=== PATIENT | male | born 1950 | race Caucasian/White ===

== ENCOUNTER → 2018-04-27 10:41 | Outpatient (CLI) | payer MEDICARE, SELFPAY ==
[2018-04-27 11:40] LABS: Hemoglobin A1C% w Est Avg Glu 8.2 % (4.0-6.0)
[2018-04-27 11:49] LABS: Alanine Aminotransferase 47 IU/L (21-72); Albumin 4.4 g/dL (3.5-5.0); Albumin Globulin Ratio 1.5 (1.0-2.8); Alkaline Phosphatase 59 U/L (38-126); Aspartate Aminotransferase 23 IU/L (17-59); Bilirubin Total 0.7 mg/dL (0.2-1.3); Blood Urea Nitrogen 14 mg/dL (9-20); Calcium 9.2 mg/dL (8.4-10.2); Carbon Dioxide 29 mmol/L (22-32); Chloride 102 mmol/L (98-107); Cholesterol 183 mg/dL (140-199); Estimated Glomerular Filt Rate > 60.0 mL/min (>60); Globulin 2.9 g/dL (1.7-4.1); Glucose 177 mg/dL (80-110); HDL Cholesterol 46 mg/dL (40-60); HEMOLYSIS < 15 (0-50); LDL Cholesterol Calculated 98 mg/dL (<100); Sodium 142 mmol/L (137-145); Total Protein 7.3 g/dL (6.3-8.2); Triglycerides 193 mg/dL (35-150)
== END ==
PROVIDERS: Family Provider Internal Medicine; PCP Internal Medicine; Visit Provider Internal Medicine
DX: E11.9 Type 2 diabetes mellitus without complications (principal); G90.09 Other idiopathic peripheral autonomic neuropathy
CPT/HCPCS: 36415; 80053; 80061; 83036

== ENCOUNTER → 2018-09-14 12:46 | Outpatient (CLI) | payer MEDICARE, SELFPAY ==
[2018-09-14 14:20] LABS: Hemoglobin A1C% w Est Avg Glu 7.8 % (4.0-6.0)
[2018-09-14 15:43] LABS: Blood Urea Nitrogen 14 mg/dL (9-20); Carbon Dioxide 29 mmol/L (22-32); Chloride 103 mmol/L (98-107); Estimated Glomerular Filt Rate > 60.0 mL/min (>60); Glucose 142 mg/dL (80-110); HEMOLYSIS < 15 (0-50); Potassium 4.1 mmol/L (3.4-5.1); Sodium 144 mmol/L (137-145)
== END ==
PROVIDERS: PCP Internal Medicine; Visit Provider Internal Medicine
DX: E11.65 Type 2 diabetes mellitus with hyperglycemia (principal)
CPT/HCPCS: 36415; 80048; 83036

== ENCOUNTER → 2018-12-17 08:42 | Outpatient (CLI) | payer MEDICARE, SELFPAY ==
[2018-12-17 09:16] LABS: Hemoglobin A1C% w Est Avg Glu 8.1 % (4.0-6.0)
[2018-12-17 09:18] LABS: BUN Creatinine Ratio 16.3 (6-22); Blood Urea Nitrogen 13 mg/dL (9-20); Calcium 9.1 mg/dL (8.4-10.2); Carbon Dioxide 28 mmol/L (22-32); Chloride 102 mmol/L (98-107); Estimated Glomerular Filt Rate > 60.0 mL/min (>60); Glucose 149 mg/dL (80-110); HEMOLYSIS < 15 (0-50); Potassium 4.4 mmol/L (3.4-5.1); Sodium 140 mmol/L (137-145)
== END ==
PROVIDERS: PCP Internal Medicine; Visit Provider Internal Medicine
DX: E11.65 Type 2 diabetes mellitus with hyperglycemia (principal)
CPT/HCPCS: 36415; 80048; 83036

== ENCOUNTER → 2019-03-12 09:01 | Outpatient (CLI) | payer MEDICARE, SELFPAY ==
[2019-03-12 09:54] LABS: Alanine Aminotransferase 43 IU/L (21-72); Albumin 4.8 g/dL (3.5-5.0); Albumin Globulin Ratio 1.7 (1.0-2.8); Alkaline Phosphatase 51 U/L (38-126); Aspartate Aminotransferase 29 IU/L (17-59); BUN Creatinine Ratio 24.3 (6-22); Bilirubin Total 0.7 mg/dL (0.2-1.3); Blood Urea Nitrogen 17 mg/dL (9-20); Calcium 9.2 mg/dL (8.4-10.2); Carbon Dioxide 27 mmol/L (22-32); Chloride 101 mmol/L (98-107); Cholesterol 194 mg/dL (140-199); Estimated Glomerular Filt Rate > 60.0 mL/min (>60); Globulin 2.8 g/dL (1.7-4.1); Glucose 144 mg/dL (80-110); HDL Cholesterol 56 mg/dL (40-60); HEMOLYSIS < 15 (0-50); LDL Cholesterol Calculated 122 mg/dL (<100); Potassium 4.6 mmol/L (3.4-5.1); Sodium 140 mmol/L (137-145); Total Protein 7.6 g/dL (6.3-8.2); Triglycerides 79 mg/dL (35-150)
== END ==
PROVIDERS: PCP Internal Medicine; Visit Provider Internal Medicine
DX: E11.65 Type 2 diabetes mellitus with hyperglycemia (principal); E78.5 Hyperlipidemia, unspecified; G25.0 Essential tremor
CPT/HCPCS: 36415; 80053; 80061; 83036

== ENCOUNTER 2019-05-21 10:53 | Day surgery (SDC) | payer MEDICARE, SELFPAY ==
[2019-05-21 11:36] VITALS: BP 136/74; PULSE 72; RESP 15; TEMP 36.3; O2SAT 96; BMI 29.5
[2019-05-21] MEDS: SODIUM CHLORIDE 0.9% 1,000 ML 200 ML IV (11:47)
[2019-05-21] MEDS: MIDAZOLAM 5 MG/5 ML VIAL IV (11:52)
[2019-05-21] MEDS: fentaNYL 250 MCG/5 ML INJ IV (11:53)
--- NOTE | 2019-05-21 11:55 | PM.HP.1 ---
History of Present Illness Date Patient Seen: 05/21/19 Time Patient Seen: 11:56 Chief complaint: [id number] Narrative: Patient here for screening colonoscopy had 10 years ago that may have shown some polyps patient is asymptomatic no melena no hematochezia and no but abdominal pain Patient History Medical History Controlled type 2 diabetes mellitus without complication (Chronic 07/20/14) Idiopathic peripheral autonomic neuropathy, unspecified (Chronic) BPH w urinary obs/LUTS (Chronic 07/31/11) Nephrolithiasis (Chronic) History of adenomatous polyp of colon (Inactive 07/31/11) Adenoma (Chronic ~2011) BPH (benign prostatic hyperplasia) (Chronic) Diabetes mellitus (Chronic ~2013) Hyperglycemia (Chronic ~2011) Kidney stones (Chronic ~2009) Surgical History History of hernia surgery (Resolved) History of knee replacement (Resolved ~2014) Meniscal injury (Resolved ~2009) Family History Brother Diabetes mellitus Father Diabetes mellitus Social History household members: spouse Smoking Status: Former smoker Family & Social History Family History Brother Diabetes mellitus Father Diabetes mellitus Social History: household members spouse Tobacco & Substance use: Smoking Status Former smoker Meds Home Medications Medication Instructions Recorded Confirmed Type aspirin [Aspir-81] 81 mg PO DAILY #0 05/04/12 05/21/19 History albuterol sulfate [Proventil HFA] 1 puff INH SEE INSTRUCTIONS #1 inh 04/02/17 05/21/19 Rx acetaminophen 500 mg capsule 1,000 mg PO Q6H PRN 04/27/18 05/21/19 History alprazolam 0.5 mg tablet See Rx Instructions .ROUTE 08/04/18 05/21/19 Rx .COMPLEX PRN #60 tab metformin 1,000 mg tablet 1,000 mg PO BID #180 tab 12/18/18 05/21/19 Rx Accu-Chek Compact Plus Test Strips #300 each 03/02/19 05/21/19 Rx Accu-Chek Softclix Lancets #300 each 03/02/19 05/21/19 Rx primidone 50 mg tablet 100 mg PO BID #120 tab 03/12/19 05/21/19 Rx trazodone 150 mg tablet 75 mg PO HS #90 tab 03/12/19 05/21/19 Rx naproxen 375 mg PO BIDCC PRN 05/21/19 05/21/19 History Allergies Allergy/AdvReac Type Severity Reaction Status Date / Time No Known Drug Allergies Allergy Verified 05/21/19 11:24 Review of Systems Review of Systems All systems reviewed & are unremarkable except as noted in HPI and below Exam Vital Signs (past 8 hours): - 05/21/19 11:36 Temperature 97.4 F L Pulse Rate 72 Respiratory Rate 15 Blood Pressure 136/74 Pulse Oximetry 96 Oxygen Delivery Method Room Air Narrative Exam Narrative: Patient is alert and oriented with no complaints Lungs are clear Heart regular rhythm no murmur Abdomen soft and nontender Rectal will be done at time of colonoscopy Assessment & Plan Assessment & Plan narrative: Asymptomatic patient here for a screening colonoscopy. He has had prior colonoscopies and understands has no questions.
--- NOTE | 2019-05-21 12:31 | PM.OP.ENDO ---
Operative Date/Time/Diagnoses Date of procedure: 05/21/19 Time of procedure: 12:31 Pre-op diagnosis: Screening colonoscopy asymptomatic patient Post-op diagnosis: same Procedure & Clinicians Study performed: Total colonoscopy Same procedure as scheduled: Yes Indications: Screening Surgeon: Valeriy Kruger Procedure Notes SCOAP/Timeout: Was done Procedure in detail: Patient was given conscious sedation using Versed total of 5 mg and fentanyl 250 micro g throughout the procedure. He was properly identified during surgical pause. The flexible fiberoptic colonoscope inserted transanally to the cecum. Patient has rather significant sigmoid diverticulosis without diverticulitis. No polyps were seen. Procedure was well tolerated. Scope withdrawal time: 15 Sedation minutes: 30 Findings: diverticulosis Specimen(s): none sent Complications: none Impression: Sigmoid diverticulosis Recommendations: Colonscopy in 10 years Disposition: PACU
[2019-05-21 12:35] VITALS: BP 125/78; PULSE 76; RESP 12; TEMP 37.1; O2SAT 97
[2019-05-21 12:41] VITALS: BP 142/84; PULSE 77; RESP 15; O2SAT 98
[2019-05-21 12:45] VITALS: BP 136/83; PULSE 74; RESP 18; O2SAT 98
--- NOTE | 2019-05-21 12:46 | SUR.PHASEI ---
Arrived in PACU awake and talkative. HOB elevated and water given. Glucose 129. Oriented, appropriate. Resp unlabored, skin warm and dry.
--- NOTE | 2019-05-21 12:50 | SUR.PHASEI ---
Stable, prepared to transfer to [facility]. Glasses returned to patient; Very talkative.
[2019-05-21 12:55] VITALS: BP 129/73; PULSE 68; RESP 16; TEMP 36.6; O2SAT 97
--- NOTE | 2019-05-21 13:20 | SUR.PHASEII ---
1317 Tolerated water well, Stable, talkative, ready for discharge. Stable on feet.
== END 2019-05-21 13:17 | disposition home or self-care (01) ==
PROVIDERS: PCP Internal Medicine; Visit Provider Surgery
PROC: 0DJD8ZZ Inspection of Lower Intestinal Tract, Via Natural or Artificial Opening Endoscopic (ICD-10-PCS; CPT 45378; principal; 2019-05-21 12:00)
DX: Z86.010 Personal history of colon polyps (principal); K57.30 Diverticulosis of large intestine without perforation or abscess without bleeding; E11.9 Type 2 diabetes mellitus without complications; G90.09 Other idiopathic peripheral autonomic neuropathy; N40.0 Benign prostatic hyperplasia without lower urinary tract symptoms; Z87.891 Personal history of nicotine dependence; Z79.84 Long term (current) use of oral hypoglycemic drugs
CPT/HCPCS: G0105; 99152; 99153; J2250; J3010

== ENCOUNTER → 2019-06-07 09:24 | Outpatient (CLI) | payer MEDICARE, SELFPAY ==
[2019-06-07 11:02] LABS: BUN Creatinine Ratio 28.3 (6-22); Blood Urea Nitrogen 17 mg/dL (9-20); Calcium 9.4 mg/dL (8.4-10.2); Carbon Dioxide 30 mmol/L (22-32); Chloride 102 mmol/L (98-107); Estimated Glomerular Filt Rate > 60.0 mL/min (>60); Glucose 141 mg/dL (80-110); HEMOLYSIS 21 (0-50); Potassium 4.3 mmol/L (3.4-5.1); Sodium 141 mmol/L (137-145)
[2019-06-07 11:29] LABS: Prostate Specific Antigen Scrn 0.492 ng/mL (0.1-4.0)
== END ==
PROVIDERS: PCP Internal Medicine; Visit Provider Internal Medicine
DX: E11.65 Type 2 diabetes mellitus with hyperglycemia (principal); Z12.5 Encounter for screening for malignant neoplasm of prostate
CPT/HCPCS: 36415; 80048; 83036; G0103

== ENCOUNTER → 2019-12-03 08:51 | Outpatient (CLI) | payer MEDICARE, SELFPAY ==
[2019-12-03 09:57] LABS: Hemoglobin A1C% w Est Avg Glu 7.3 % (4.0-6.0)
[2019-12-03 09:59] LABS: Alanine Aminotransferase 37 IU/L (<50); Albumin 4.7 g/dL (3.5-5.0); Albumin Globulin Ratio 1.5 (1.0-2.8); Alkaline Phosphatase 51 U/L (38-126); Aspartate Aminotransferase 28 IU/L (17-59); BUN Creatinine Ratio 21.4 (6-22); Bilirubin Total 0.6 mg/dL (0.2-1.3); Blood Urea Nitrogen 15 mg/dL (9-20); Calcium 9.5 mg/dL (8.4-10.2); Carbon Dioxide 29 mmol/L (22-32); Chloride 98 mmol/L (98-107); Cholesterol 211 mg/dL (140-199); Estimated Glomerular Filt Rate > 60.0 mL/min (>60); Globulin 3.1 g/dL (1.7-4.1); Glucose 164 mg/dL (80-110); HDL Cholesterol 47 mg/dL (40-60); HEMOLYSIS < 15 (0-50); LDL Cholesterol Calculated 138 mg/dL (<100); Potassium 4.3 mmol/L (3.4-5.1); Sodium 137 mmol/L (137-145); Total Protein 7.8 g/dL (6.3-8.2); Triglycerides 128 mg/dL (35-150)
== END ==
PROVIDERS: PCP Internal Medicine; Visit Provider Internal Medicine
DX: Z13.6 Encounter for screening for cardiovascular disorders (principal); E11.9 Type 2 diabetes mellitus without complications; G25.0 Essential tremor
CPT/HCPCS: 36415; 80053; 80061; 83036

== ENCOUNTER → 2020-06-05 09:36 | Outpatient (CLI) | payer MEDICARE, SELFPAY ==
[2020-06-05 11:18] LABS: Alanine Aminotransferase 44 IU/L (<50); Albumin 4.6 g/dL (3.5-5.0); Albumin Globulin Ratio 1.6 (1.0-2.8); Alkaline Phosphatase 56 U/L (38-126); Aspartate Aminotransferase 32 IU/L (17-59); BUN Creatinine Ratio 24.2 (6-22); Bilirubin Total 0.5 mg/dL (0.2-1.3); Blood Urea Nitrogen 16 mg/dL (9-20); Calcium 9.3 mg/dL (8.4-10.2); Carbon Dioxide 33 mmol/L (22-32); Chloride 102 mmol/L (98-107); Cholesterol 199 mg/dL (140-199); Estimated Glomerular Filt Rate > 60.0 mL/min (>60); Globulin 2.9 g/dL (1.7-4.1); Glucose 176 mg/dL (80-110); HDL Cholesterol 42 mg/dL (40-60); HEMOLYSIS < 15 (0-50); LDL Cholesterol Calculated 128 mg/dL (<100); Potassium 4.5 mmol/L (3.4-5.1); Sodium 140 mmol/L (137-145); Total Protein 7.5 g/dL (6.3-8.2); Triglycerides 146 mg/dL (35-150)
== END ==
PROVIDERS: PCP Internal Medicine; Referring Provider Internal Medicine; Visit Provider Internal Medicine
DX: E11.9 Type 2 diabetes mellitus without complications (principal); E78.2 Mixed hyperlipidemia
CPT/HCPCS: 36415; 80053; 80061; 83036

== ENCOUNTER → 2021-02-01 09:23 | Outpatient (CLI) | payer MEDICARE, SELFPAY ==
[2021-02-01] MEDS: COVID-19 VACC, Ad26(JANSSEN)/PF 0.5 ML IM (09:33)
== END ==
PROVIDERS: PCP Internal Medicine; Visit Provider Internal Medicine
DX: Z23 Encounter for immunization (principal)
CPT/HCPCS: 0031A; 91303

== ENCOUNTER → 2021-12-25 07:48 | Outpatient (CLI) | payer MEDICARE, SELFPAY ==
[2021-12-25 10:19] LABS: Hemoglobin A1C% w Est Avg Glu 8.7 % (4.0-6.0)
[2021-12-25 10:26] LABS: Alanine Aminotransferase 44 IU/L (<50); Albumin 4.5 g/dL (3.5-5.0); Albumin Globulin Ratio 1.5 (1.0-2.8); Alkaline Phosphatase 46 U/L (38-126); Aspartate Aminotransferase 29 IU/L (17-59); BUN Creatinine Ratio 21.5 (6-22); Bilirubin Total 0.5 mg/dL (0.2-1.3); Blood Urea Nitrogen 17 mg/dL (9-20); Calcium 9.3 mg/dL (8.4-10.2); Carbon Dioxide 29 mmol/L (22-32); Chloride 103 mmol/L (98-107); Cholesterol 193 mg/dL (140-199); Estimated Glomerular Filt Rate > 60.0 mL/min (>60); Glucose 171 mg/dL (80-110); HDL Cholesterol 46 mg/dL (40-60); HEMOLYSIS < 15 (0-50); LDL Cholesterol Calculated 127 mg/dL (<100); Sodium 138 mmol/L (137-145); Total Protein 7.5 g/dL (6.3-8.2); Triglycerides 101 mg/dL (35-150)
== END ==
PROVIDERS: PCP Internal Medicine; Referring Provider Internal Medicine; Visit Provider Internal Medicine
DX: E11.65 Type 2 diabetes mellitus with hyperglycemia (principal); E78.2 Mixed hyperlipidemia
CPT/HCPCS: 36415; 80053; 80061; 83036

== ENCOUNTER → 2022-01-30 14:00 | Outpatient (CLI) | payer MEDICARE, SELFPAY ==
--- NOTE | 2022-02-05 17:21 | DIAB.MNT ---
Initial Diabetes Medical Nutrition Therapy Assessment Name: Robert Junior (Manuel) Date: 01/30/22 Time: 215-320p Dx: Type II Diabetes Provider: Wendy Preferred Learning Style: watching, reading, hands-on/doing Manuel presents today for initial visit regarding T2DM. Endorses PMH of DM for about 7 years. +Fh of DM with father (had gastroparesis), brother, paGma and paGfa. Main concerns with diabetes progression for him include, risk of amputation, eye sight loss, and losing ability to play piano. 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 Very rewarding and brings him franklin. HgA1c progressively increasing over last couple years. States he has been avoiding PCP visits due to covid fears. Numbness in LE which he attributes to his lower back pinched nerve, lumbar injury. Has gotten worse over the years. Applies lotion on feet daily, otherwise feet will crack. Stress: 18y/o grandson lives with them, has a dog that Manuel and his mostly care for. States he has lost about 10# intentionally. Attributes this mostly due to cutting down on kcals with coffee additions of kahlua and cream. Has been taking a probiotic supplement, which has helped with BM per report. States he was hoping it would help wtih wt loss. Also reports a reduction in ice cream portion from 5 scoops to 3. Diet Recall: 10a: banana and coffee, 1-2 x12 oz 12p: 1-1.5c oats, 3-4 cranberries, sliced almonds, half n half, 1/2 tsp brown sugar 3p: blue yu bagel or apple with cheese or nuts 6p: baked potato with sour cream, green pepper, pork chop, milk x 8oz 8p: 3 scoops of ice cream or cobbler Anthropometrics: Ht: 6'1.5 Wt: 235# reported Physical Activity: gardening, has workout equipment (bowflex and treadmill) but not currently using Self-Monitoring Blood Glucose: Brought meter. Inconsistent SMBG. Readings range from 140-226 mg/dL. Diabetes Medications: Metformin 1000 mg BID Pertinent Labs: HgA1c 01/15: 8.7% H Past Medical History: (Last Updated 06/07/19 @ 11:59 by Travon Nguyen MD) Adenoma (~2011) T Adenomas3 2007 MV, 2012 BPH (benign prostatic hyperplasia) BPH w urinary obs/LUTS (07/31/11) Controlled type 2 diabetes mellitus without complication (07/20/14) Diabetes mellitus (~2013) Type 2 Diverticular disease of colon Essential tremor History of adenomatous polyp of colon (07/31/11) 2006, 2011 History of hernia surgery History of knee replacement (~2014) Right total knee, with redo, fall 2014 Hyperglycemia (~2011) Idiopathic peripheral autonomic neuropathy, unspecified Kidney stones (~2009) x4, last 2009 Nephrolithiasis Uncontrolled diabetes mellitus type 2 without complications Nutrition Rx: Plate Method Nutrition Diagnosis: - Excessive CHO intake r/t nutrition knowledge deficit aeb diet recall of dessert portions and pt report - Physical inactivity r/t stage of change aeb pt report of unused equipment but feeling motivated to incorporate Intervention: This participant was very receptive. Provided appropriate educational handouts. Discussed the following topics: Completed intake assessment. Discussed barriers to care. HgA1c, its correlation to blood glucose numbers, and rationale for goal Complication risk reduction with improved HgA1c Importance of self-monitoring, how often, and when to check. Suggested checking at different times to evaluate meals Plate Method, impact of macronutrients on blood sugar, meal timing, pairing macronutrients and spreading out carbohydrates for better blood glucose management Recommended servings for carbohydrates at meals and snacks Role of physical activity and following guidelines for safety Created SMART goals for patient self-care and success. Goals: Measure evening ice cream scoops (aim for 1c) Start checking BG more consistently: FBG and/or 1-2 hr pc For a snack, keep bagel to half Implement treadmill 2-3 x per week Follow-up: [facility] follow-up in 3-4 weeks Rebecca Velazquez RDN, [facility] Certified Diabetes Care and Front Office Supervisor P: [phone] Thank you for this referral
== END ==
PROVIDERS: PCP Internal Medicine; Referring Provider Internal Medicine; Visit Provider Internal Medicine
DX: E11.9 Type 2 diabetes mellitus without complications (principal)
CPT/HCPCS: 97802

== ENCOUNTER → 2022-02-20 14:02 | Outpatient (CLI) | payer MEDICARE, SELFPAY ==
--- NOTE | 2022-02-20 17:29 | DIAB.FU ---
Follow-up Diabetes Education Assessment Name: Robert Junior (Manuel) Date: 02/20/22 Time: 210-340p Dx: Type II Diabetes Manuel presents for follow-up regarding T2Dm. Has completed most goals since last visit, except for the physical activity piece. Measured his ice cream and it was 3/4c. Reduced snack portion or cut out snacks since last visit. Started checking BG TID: FBG and 2 hour pc. BP at noon 161/85 higher than usual. 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 Feels this may be impacting his BP. Brought in some lab work from the last 10 years. Seems his fastings in labwork have been >126 since 2011. 2013 HgA1c diagnosed him with DM at 6.7%. Has cont to lose wt. Home wt of 231#, down from 235# reported last visit. Some meals high in saturated fat, and with elevated LDL may want to avoid such meals, ie sausage sandwiched between two pieces of cheese. His main goal is weight loss (<200#), to avoid insulin per report Physical Activity: Walking to/from mailbox = 4mi. walks the dog in the yard daily but no exercise plan yet. States preparing taxes has been his main concern. Denies having time recently for activity, but again he does have a treadmill and bowflex. Self-Monitoring Blood Glucose: States he enjoys the current meter he has because of ease of use with having a tremor. He can complete a BG check one handed. His current meter no longer has strips available for purchase-- discontinued. There is an Simple[employer] mobile that is much like his current meter. the meter has been discontinued, but the strips are still available for purchase with an rx. States his pharmacist may be able to get him one. FBG all above goal, though improved from 180s. After lunch 2/2 in range. pre dinner in range. Dinner and HS elevations may be r/t large portions of carbs and added dessert each evening. Reports 12 plate, watching TV while eating and larger portions at this meal. Interested in logging food. Date Pre Post Pre Post Pre Post HS 02/14 166 150 02/15 160 121 248 02/16 139 123 245 167 02/17 153 02/18 154 156 02/19 168 02/20 161 123 Diabetes Medications: Metformin 1000mg BID Pertinent Labs:HgA1c 01/15: 8.7% H Past Medical History: (Last Updated 06/07/19 @ 11:59 by Travon Nguyen MD) Adenoma (~2011) T Adenomas3 2006, 2011 BPH (benign prostatic hyperplasia) BPH w urinary obs/LUTS (07/31/11) Controlled type 2 diabetes mellitus without complication (07/20/14) Diabetes mellitus (~2013) Type 2 Diverticular disease of colon Essential tremor History of adenomatous polyp of colon (07/31/11) 2006, 2011 History of hernia surgery History of knee replacement (~2014) Right total knee, with redo, fall 2014 Hyperglycemia (~2011) Idiopathic peripheral autonomic neuropathy, unspecified Kidney stones (~2009) x4, last 2009 Nephrolithiasis Uncontrolled diabetes mellitus type 2 without complications Intervention: This participant was very receptive. Provided appropriate educational handouts. Discussed the following topics: Recent blood sugar results and trends Review of general nutrition recommendations and current intake, impact of dinner and dessert on BG Plan for meter with tremor Stress and impact on health Physical activity plan and impact on blood sugars Created SMART goals for patient self-care and success. Goals: Measure evening ice cream scoops (aim for 1c)- met Start checking BG more consistently: FBG and/or 1-2 hr pc- met For a snack, keep bagel to half- met Implement treadmill 2-3 x per week- in progress Ask pharmacy about accucheck mobile- new Keep food journal with BG readings- new Follow-up: [facility] follow-up in 3 weeks Rebecca Velazquez RDN, [facility] Certified Diabetes Care and Linux Systems Administrator P: [phone] Thank you for this referral
== END ==
PROVIDERS: PCP Internal Medicine; Referring Provider Internal Medicine; Visit Provider Internal Medicine
DX: E11.9 Type 2 diabetes mellitus without complications (principal); Z79.84 Long term (current) use of oral hypoglycemic drugs; Z71.3 Dietary counseling and surveillance
CPT/HCPCS: G0108

== ENCOUNTER → 2022-03-12 10:30 | Outpatient (CLI) | payer MEDICARE, SELFPAY ==
--- NOTE | 2022-03-12 12:02 | DIAB.MNTFU ---
Follow-up Diabetes Medical Nutrition Therapy Assessment Name: Robert Junior Date: 03/12/22 Time: [id number] Dx: Type II Diabetes Manuel presents today for follow-up regarding T2DM. Improved FBG. Attributes to reduced intake in evening. Smaller portions. Started treadmill as well. Endorses weight down below 230# since last visit, but back up to 231# since meal/desserts. Has been keeping food log and BG log. Some meals indicate higher CHO intake, ie 3pc malaysian bread with soup and cider. Other meals well within goal of CHO, ie sandwich with cup of fruit. Some meals with juice, which he states he is not attached to. Reported elevated BP. Went to pharmacy and had them check 3 times, all elevated >140/80. Messaged provider. No hypertensive emergency. Plans to discuss with PCP next visit. is not wanting to manage with meds. Anthropometrics: Wt: 231# reported Personal goal: <200# Physical Activity: 15 min walking for 1 mi on treadmill 2 x per day, aims for 2x per day. No bowflex yet. Self-Monitoring Blood Glucose: FBG improved, though many above goal. After meal some in goal and others elevated from CHO portions. Limited pc dinner readings. All pre dinner in range. using a new meter and has adequate supplies. Satisfied with current new meter. Date Pre Post Pre Post Pre Post HS 03/05 143 142 13 154 122 14 151 129 15 140 130 159 /16 135 126 /17 137 189 18 132 130 Diabetes Medications: Metformin 1000mg BID Pertinent Labs:HgA1c 01/15: 8.7% H Past Medical History: (Last Updated 06/07/19 @ 11:59 by Travon Nguyen MD) Adenoma (~2011) T Adenomas3 2006 MV, 2011 BPH (benign prostatic hyperplasia) BPH w urinary obs/LUTS (07/31/11) Controlled type 2 diabetes mellitus without complication (07/20/14) Diabetes mellitus (~2013) Type 2 Diverticular disease of colon Essential tremor History of adenomatous polyp of colon (07/31/11) 2006, 2011 History of hernia surgery History of knee replacement (~2014) Right total knee, with redo, fall 2014 Hyperglycemia (~2011) Idiopathic peripheral autonomic neuropathy, unspecified Kidney stones (~2009) x4, last 2010 Nephrolithiasis Uncontrolled diabetes mellitus type 2 without complications Nutrition Rx: Carbohydrates: Meal: 45-60g Snack:15-30g Nutrition Diagnosis: Excessive CHO intake r/t some portions and beverage choices reported aeb diet recall Suboptimal physical activity r/t readiness to increase plan aeb <150 min per week activity Intervention: This participant was very receptive. Provided appropriate educational handouts. Discussed the following topics: Blood sugar review and trends. Impact of food intake on results. Goals for SMBG BP MNT: sodium Stress and impact on health when to check BG Carb portions HTN vs HTN emergency or urgency Physical activity plan and progress Created SMART goals for patient self-care and success. Goals: Implement treadmill 2-3 x per week- met Ask pharmacy about accucheck mobile- met Keep food journal with BG readings- met Avoid juice- new Treadmill 2 days per week BID- new Check pc dinner BG- new Follow-up: IN[facility]NO[facility] follow-up in 3 weeks Seems as though Manuel can manage his BG with lifestyle and Metformin. With reduced carb and exercise BG have improved. Will cont to evaluate. Rebecca Velazquez RDN, [facility] Certified Diabetes Care and Prefinish Operator P: [phone] Thank you for this referral
== END ==
PROVIDERS: PCP Internal Medicine; Referring Provider Internal Medicine; Visit Provider Internal Medicine
DX: E11.9 Type 2 diabetes mellitus without complications (principal); Z79.84 Long term (current) use of oral hypoglycemic drugs; Z71.3 Dietary counseling and surveillance
CPT/HCPCS: 97803

== ENCOUNTER → 2022-03-25 13:41 | Outpatient (CLI) | payer MEDICARE, SELFPAY ==
[2022-03-25 15:11] LABS: Blood Urea Nitrogen 14 mg/dL (9-20); Carbon Dioxide 28 mmol/L (22-32); Chloride 101 mmol/L (98-107); Estimated Glomerular Filt Rate > 60 mL/min (>60); Glucose 147 mg/dL (80-110); HEMOLYSIS < 15 (0-50); Potassium 4.1 mmol/L (3.4-5.1); Sodium 140 mmol/L (137-145)
[2022-03-25 15:14] LABS: Hemoglobin A1C% w Est Avg Glu 7.8 % (4.0-6.0)
== END ==
PROVIDERS: PCP Internal Medicine; Referring Provider Internal Medicine; Visit Provider Internal Medicine
DX: E11.65 Type 2 diabetes mellitus with hyperglycemia (principal); E78.2 Mixed hyperlipidemia
CPT/HCPCS: 36415; 80048; 83036

== ENCOUNTER → 2022-04-02 13:56 | Outpatient (CLI) | payer MEDICARE, SELFPAY ==
--- NOTE | 2022-04-03 16:17 | DIAB.MNTFU ---
Follow-up Diabetes Medical Nutrition Therapy Assessment Name: Robert Junior (Manuel) Date: 04/03/22 Time: 2-230p Dx: Type II Diabetes Manuel presents for Dm follow-up. Reports improved BG. States he has been avoiding juice. Reports cutting cream in coffee and using sugar sub. BP has improved, no HTN medication. Has been working on physical activity. Tracking food and BG. Conscious of protein intake with meals. Pre meal BG often in goal. After meals, readings often elevated. Seems portions is likely impacting results. Reports sometimes >1c of carbs at a meal. New hgA1c improved since prior. Down to 7.8% from 8.7% with lifestyle changes. Anthropometrics: Wt: 231# reported Personal goal: <200# Physical Activity: Less treadmill recently, but he has been walking trails more often with x 1-2 days per week (results in 6,000 steps in a day). Endorses yard work daily. Considering going on bike rides. Self-Monitoring Blood Glucose: Slight improvement to FBG. most pre meal readings in goal. Few after meal readings for review. Those available often 180-220 mg/dL (elevated) Date Pre Post Pre Post Pre Post HS 5/4 134 134 5/5 124 5/6 127 5/7 130 5/8 141 5/9 139 183 121 5/10 146 Diabetes Medications: Metformin 1000mg BID Pertinent Labs: 7.8% Past Medical History: (Last Updated 06/07/19 @ 11:59 by Travon Nguyen MD) Adenoma (~2011) T Adenomas3 2006, 2011 BPH (benign prostatic hyperplasia) BPH w urinary obs/LUTS (07/31/11) Controlled type 2 diabetes mellitus without complication (07/20/14) Diabetes mellitus (~2013) Type 2 Diverticular disease of colon Essential tremor History of adenomatous polyp of colon (07/31/11) 2006, 2011 History of hernia surgery History of knee replacement (~2014) Right total knee, with redo, fall 2014 Hyperglycemia (~2011) Idiopathic peripheral autonomic neuropathy, unspecified Kidney stones (~2009) x4, last 2009 Nephrolithiasis Uncontrolled diabetes mellitus type 2 without complications Nutrition Rx: Plate Method Nutrition Diagnosis: Predicted excessive CHO intake r/t nutrition knowledge deficit aeb BG >180 and pt report Predicted sub optimal physical activity r/t <150 min per week aeb pt report Intervention: This participant was very receptive. Provided appropriate educational handouts. Discussed the following topics: Blood sugar review and trends. Impact of food intake on results. Plate Method,, keeping carbs to 1c at meals Physical activity plan and progress Created SMART goals for patient self-care and success. Goals: Avoid juice- met Treadmill 2 days per week BID- d/c Check pc dinner BG- in progress Keep carbs to 1c at meals- new Aim for 150 min of activity per week- new Follow-up: INDY [facility]NOX follow-up in June. Will follow-up after next HgA1c. Encouraged him to call with questions, concerns and follow-up needs prn. He agreed to this plan. Rebecca Velazquez RDN, [facility] Certified Diabetes Care and Hand Tufter P: [phone] Thank you for this referral
== END ==
PROVIDERS: PCP Internal Medicine; Referring Provider Internal Medicine; Visit Provider Internal Medicine
DX: E11.9 Type 2 diabetes mellitus without complications (principal); Z79.84 Long term (current) use of oral hypoglycemic drugs; Z71.3 Dietary counseling and surveillance
CPT/HCPCS: 97803

== ENCOUNTER → 2022-07-19 13:10 | Outpatient (CLI) | payer MEDICARE, SELFPAY ==
[2022-07-19 13:44] LABS: Hemoglobin A1C% w Est Avg Glu 7.5 % (4.0-6.0)
[2022-07-19 14:16] LABS: Alanine Aminotransferase 28 IU/L (<50); Albumin 4.4 g/dL (3.5-5.0); Albumin Globulin Ratio 1.5 (1.0-2.8); Alkaline Phosphatase 56 U/L (38-126); Aspartate Aminotransferase 24 IU/L (17-59); BUN Creatinine Ratio 23.1 (6-22); Bilirubin Total 0.5 mg/dL (0.2-1.3); Blood Urea Nitrogen 15 mg/dL (9-20); Calcium 8.9 mg/dL (8.4-10.2); Carbon Dioxide 28 mmol/L (22-32); Chloride 102 mmol/L (98-107); Cholesterol 200 mg/dL (140-199); Estimated Glomerular Filt Rate > 60 mL/min (>60); Globulin 2.9 g/dL (1.7-4.1); Glucose 137 mg/dL (80-110); HDL Cholesterol 50 mg/dL (40-60); HEMOLYSIS < 15 (0-50); LDL Cholesterol Calculated 132 mg/dL (<100); Sodium 139 mmol/L (137-145); Total Protein 7.3 g/dL (6.3-8.2); Triglycerides 92 mg/dL (35-150)
[2022-07-19 15:28] LABS: Microalbumi Creatinin Ratio Ur 45.6 ug/mg CR (<30); Microalbumin Urine Random 5.2 mg/dL (0-1.6)
== END ==
PROVIDERS: PCP Internal Medicine; Referring Provider Internal Medicine; Visit Provider Internal Medicine
DX: E11.65 Type 2 diabetes mellitus with hyperglycemia (principal); E78.2 Mixed hyperlipidemia
CPT/HCPCS: 36415; 80053; 80061; 82043; 82570; 83036

== ENCOUNTER → 2022-07-23 13:57 | Outpatient (CLI) | payer MEDICARE, SELFPAY ==
--- NOTE | 2022-07-25 17:38 | DIAB.FU ---
Follow-up Diabetes Education Assessment Name: Robert Junior (Manuel) Date: 07/23/22 Time: 205-240p Dx: Type II Diabetes Provider: Wendy Jackson presents today for Dm follow-up. Reports improved vision with cataract surgery, both eyes. States he is eating more nuts recently. Questions regarding last lipid panel. We reviewed and discussed elevated LDL. Has been avoiding juice and reducing carb portions since last visit. Also reports stress improved with grandson moving, but he now has the grandson's dog (neelam) Anthropometrics: Ht: 6'1.5 Wt: 228# 07/22/22 Down from 235# when DSME started. Overall, has lost 7#. Physical Activity: No currently program. Has a bowflex. Has moved treadmill to sun room per 's request, but he now does not use it. Wants to watch TV while walking. Self-Monitoring Blood Glucose: Reviewed log book. Has been checking a few postprandial and HS readings. FBG continue 130-150mg/dl most days. Recent readings: FB, 149, 157, 150, 147, 143, 148, 136 premeal 139, 154, 114, 125, 157, 136 post meal 172, 126 HS readings 135, 174, 151, 158, 220 Diabetes Medications: Metformin 1000mg BID Pertinent Labs: 7.8% Past Medical History: (Last Updated 06/07/19 @ 11:59 by Travon Nguyen MD) Adenoma (~2011) T Adenomas3 2006, 2011 BPH (benign prostatic hyperplasia) BPH w urinary obs/LUTS (07/31/11) Controlled type 2 diabetes mellitus without complication (07/20/14) Diabetes mellitus (~2013) Type 2 Diverticular disease of colon Essential tremor History of adenomatous polyp of colon (07/31/11) 2006, 2011 Hyperglycemia (~2011) Idiopathic peripheral autonomic neuropathy, unspecified Kidney stones (~2009) x4, last 2009 Nephrolithiasis Uncontrolled diabetes mellitus type 2 without complications Intervention: This participant was very receptive. Provided appropriate educational handouts. Discussed the following topics: Recent blood sugar results and trends Review of general nutrition recommendations and current intake Physical activity plan and impact on blood sugars HgA1c goal 7% v 8% accounting for overall health, age, and duration of dx Created SMART goals for patient self-care and success. Goals: Check pc dinner BG- met Keep carbs to 1c at meals- improved Aim for 150 min of activity per week- in progress Place screen in front of treadmill- new Start walking 3 days per week- new Bowflex 2-3x per week- new Follow-up: [facility]DY [facility]NO[facility] follow-up in September Rebecca Velazquez RDN, [facility] Certified Diabetes Care and Exchange Clerk P: [phone] Thank you for this referral
== END ==
PROVIDERS: PCP Internal Medicine; Referring Provider Internal Medicine; Visit Provider Internal Medicine
DX: E11.9 Type 2 diabetes mellitus without complications (principal); Z79.84 Long term (current) use of oral hypoglycemic drugs
CPT/HCPCS: G0108

== ENCOUNTER → 2022-10-07 08:12 | Outpatient (CLI) | payer MEDICARE, SELFPAY ==
[2022-10-07 09:11] LABS: Hemoglobin A1C% w Est Avg Glu 7.7 % (4.0-6.0)
[2022-10-07 09:15] LABS: Alanine Aminotransferase 26 IU/L (<50); Albumin 4.4 g/dL (3.5-5.0); Albumin Globulin Ratio 1.3 (1.0-2.8); Alkaline Phosphatase 59 U/L (38-126); Aspartate Aminotransferase 25 IU/L (17-59); BUN Creatinine Ratio 23.2 (6-22); Bilirubin Total 0.4 mg/dL (0.2-1.3); Blood Urea Nitrogen 16 mg/dL (9-20); Calcium 8.9 mg/dL (8.4-10.2); Carbon Dioxide 26 mmol/L (22-32); Chloride 102 mmol/L (98-107); Estimated Glomerular Filt Rate > 60 mL/min (>60); Globulin 3.3 g/dL (1.7-4.1); Glucose 169 mg/dL (80-110); HEMOLYSIS < 15 (0-50); Sodium 139 mmol/L (137-145); Total Protein 7.7 g/dL (6.3-8.2)
== END ==
PROVIDERS: PCP Internal Medicine; Referring Provider Internal Medicine; Visit Provider Internal Medicine
DX: E11.65 Type 2 diabetes mellitus with hyperglycemia (principal); E78.2 Mixed hyperlipidemia
CPT/HCPCS: 36415; 80053; 83036

== ENCOUNTER → 2022-11-13 10:31 | Outpatient (CLI) | payer MEDICARE, SELFPAY ==
--- NOTE | 2022-11-13 13:15 | DIAB.MNTFU ---
Follow-up Diabetes Medical Nutrition Therapy Assessment Name: Robert Junior (Manuel) Date: 11/13/22 Time: [id number] Dx: Type II Diabetes Manuel presents for follow-up after secondary MNT referral for additional hours now that he is on a new medication, glipizide. Since last visit has started glipizide 5mg BID, which has made a great impact on BG. All numbers in goal. No hypoglycemia.Even with high CHO intake BG cont <180mg/dl postprandially. States he has been in PT for hip pain r/t pinched nerve. Reports it has improved. Continues to lose weight. Reports a 222# recent weight at home. Down almost 6# from provider visit. Attributes this to smaller food portions. Has not been able to exercise as was previous to pinched nerve. Diet recall indicates 2-3 eating occurrences per day. Most range from 30-45g CHO per sitting. Vegetables once per day at dinner. Manuel reports he has been very busy with he and his getting the flu, he getting the pinched nerve injury, etc. Physical activity has been reduced in response to this. States his pharmacy is asking if he would like to be on a statin. He seems unclear as to what this would be for. Anthropometrics: Ht: 5'11.5 Wt: 222# reported Weight history: 227.6# last PCP visit Physical Activity: has not started bowflex. PT 2x per week. Has a treadmill at home. Has not been using home equipment. Interested in trying. Self-Monitoring Blood Glucose:: All in goal. One HS reading of 176 after high CHO intake. September FBG recorded range from 110-137mg/dl with most <130mg/dl. Denies any s/s of hypoglycemia. Date Pre Post Pre Post Pre Post notes 11/04 132 11/05 108 11/07 110 119 11/08 105 11/09 117 176 11/11 134 11/12 83 Diabetes Medications: 1000mg Metformin BID Glipizide 5mg BID Pertinent Labs: hgA1c 7.7% 09/2022, Last lipids in 06/2022 total cholesterol: 200 ; LDL 132 H ; HDL 50 Past Medical History: (Last Updated 10/07/22 @ 09:51 by Travon Nguyen MD) Adenoma (~2011) T Adenomas3 2006 MV, 2011 BPH (benign prostatic hyperplasia) BPH w urinary obs/LUTS (07/31/11) Diabetes mellitus (~2013) Type 2 Diverticular disease of colon Essential tremor History of adenomatous polyp of colon (07/31/11) 2006, 2011 Hyperglycemia (~2011) Idiopathic peripheral autonomic neuropathy, unspecified Kidney stones (~2009) x4, last 2010 Nephrolithiasis Type 2 diabetes mellitus Nutrition Rx: Plate Method Nutrition Diagnosis: Predicted excessive CHO intake r/t nutrition knowledge deficit aeb BG >180 and pt report- improved Predicted sub optimal physical activity r/t <150 min per week aeb pt report- in progress Predicted sub optimal fiber intake r/t limited veggie intake aeb diet recall - new Intervention: This participant was very receptive. Provided appropriate educational handouts. Discussed the following topics: Blood sugar review and trends. Impact of new med on BG Purpose of statin and potential benefit Physical activity plan and progress Created SMART goals for patient self-care and success. Goals: Place screen in front of treadmill- not met Start walking 3 days per week- not met Bowflex 2-3x per week- not met Consider home exercise regimen- new Take bowflex exercise book to PT for insight- new Follow-up: [facility] follow-up in December after PCP visit. will focus more on fiber and veggie intake at that time. Rebecca Velazquez RDN, [facility] Certified Diabetes Care and Ssis Ssrs Developer P: [phone] Thank you for this referral
== END ==
PROVIDERS: PCP Internal Medicine; Referring Provider Internal Medicine; Visit Provider Internal Medicine
DX: E11.9 Type 2 diabetes mellitus without complications (principal); Z79.84 Long term (current) use of oral hypoglycemic drugs; Z71.3 Dietary counseling and surveillance
CPT/HCPCS: G0270

== ENCOUNTER → 2023-01-04 09:46 | Outpatient (CLI) | payer MEDICARE, SELFPAY ==
[2023-01-04 11:10] LABS: Hemoglobin A1C% w Est Avg Glu 6.3 % (4.0-6.0)
[2023-01-04 11:23] LABS: BUN Creatinine Ratio 26.7 (6-22); Blood Urea Nitrogen 16 mg/dL (9-20); Calcium 8.7 mg/dL (8.4-10.2); Carbon Dioxide 27 mmol/L (22-32); Chloride 104 mmol/L (98-107); Estimated Glomerular Filt Rate > 60 mL/min (>60); Glucose 124 mg/dL (80-110); HEMOLYSIS < 15 (0-50); Potassium 3.8 mmol/L (3.4-5.1); Sodium 140 mmol/L (137-145)
== END ==
PROVIDERS: PCP Internal Medicine; Referring Provider Internal Medicine; Visit Provider Internal Medicine
DX: E11.9 Type 2 diabetes mellitus without complications (principal); G25.0 Essential tremor
CPT/HCPCS: 36415; 80048; 83036

== ENCOUNTER → 2023-01-15 10:32 | Outpatient (CLI) | payer MEDICARE, SELFPAY ==
--- NOTE | 2023-01-21 17:22 | DIAB.MNTFU ---
Follow-up Diabetes Medical Nutrition Therapy Assessment Name: Robert Junior (Manuel) Date: 01/15/23 Time: [id number] Dx: Type II Diabetes Manuel presents for follow-up DM visit. Sttes he has been adding protein to cereal with pumpkin seeds. Has been eating more veggies and recently eating high fiber options, ie zavala soup. Overall, doing very well. hgA1c down to 6.3! Anthropometrics: Ht: 5'11.5 Wt: 226.83 last PCP visit Physical Activity: walks at [employer] park. Reports 1297-4799 steps per day. Considering treadmill again or walks with . d/c from PT. Self-Monitoring Blood Glucose: Reports Hs readings mostly <160mg/dl and mid day 90-130mg/dl. Readings seem to be in goal. Diabetes Medications: 1000mg Metformin BID Glipizide 5mg BID Pertinent Labs: 09/2022 hgA1c 7.7% 12/2022 hgA1c 6.3% Past Medical History: (Last Updated 10/07/22 @ 09:51 by Travon Nguyen MD) Adenoma (~2011) T Adenomas3 2006, 2011 BPH (benign prostatic hyperplasia) BPH w urinary obs/LUTS (07/31/11) Diabetes mellitus (~2013) Type 2 Diverticular disease of colon Essential tremor History of adenomatous polyp of colon (07/31/11) 2006, 2011 Hyperglycemia (~2011) Idiopathic peripheral autonomic neuropathy, unspecified Kidney stones (~2009) x4, last 2009 Nephrolithiasis Type 2 diabetes mellitus Nutrition Rx: Plate Method Nutrition Diagnosis: Predicted sub optimal physical activity r/t <150 min per week aeb pt report- in progress/improved Predicted sub optimal fiber intake r/t limited veggie intake aeb diet recall - improved Intervention: This participant was very receptive. Provided appropriate educational handouts. Discussed the following topics: Blood sugar review and trends. HgA1c improvement Physical activity plan and progress overview of current intake Created SMART goals for patient self-care and success. Goals: Consider home exercise regimen- not met Take bowflex exercise book to PT for insight- not met restart walks with when able- new Follow-up: [facility] follow-up prn. Encouraged Manuel to call or message with any questions or follow-up needs. Rebecca Velazquez RDN, [facility] Certified Diabetes Care and Information Consultant P: [phone] Thank you for this referral
== END ==
PROVIDERS: PCP Internal Medicine; Referring Provider Internal Medicine; Visit Provider Internal Medicine
DX: E11.9 Type 2 diabetes mellitus without complications (principal); Z79.84 Long term (current) use of oral hypoglycemic drugs; Z71.3 Dietary counseling and surveillance
CPT/HCPCS: 97803

== ENCOUNTER → 2023-04-04 11:45 | Outpatient (CLI) | payer MEDICARE, SELFPAY ==
[2023-04-04 13:32] LABS: Alanine Aminotransferase 31 IU/L (<50); Albumin 4.4 g/dL (3.5-5.0); Albumin Globulin Ratio 1.5 (1.0-2.8); Alkaline Phosphatase 53 U/L (38-126); Aspartate Aminotransferase 28 IU/L (17-59); BUN Creatinine Ratio 34.5 (6-22); Bilirubin Total 0.7 mg/dL (0.2-1.3); Blood Urea Nitrogen 20 mg/dL (9-20); Carbon Dioxide 26 mmol/L (22-32); Chloride 105 mmol/L (98-107); Cholesterol 207 mg/dL (140-199); Estimated Glomerular Filt Rate > 60 mL/min (>60); Globulin 2.9 g/dL (1.7-4.1); Glucose 112 mg/dL (80-110); HDL Cholesterol 60 mg/dL (40-60); HEMOLYSIS < 15 (0-50); LDL Cholesterol Calculated 133 mg/dL (<100); Potassium 4.3 mmol/L (3.4-5.1); Sodium 140 mmol/L (137-145); Total Protein 7.3 g/dL (6.3-8.2); Triglycerides 71 mg/dL (35-150)
[2023-04-05 09:51] LABS: x Labcorp Estim. Avg Glu (eAG) 137 mg/dL (.); x Labcorp Hemoglobin A1c 6.4 % (4.8-5.6)
== END ==
PROVIDERS: PCP Internal Medicine; Referring Provider Internal Medicine; Visit Provider Internal Medicine
DX: E11.9 Type 2 diabetes mellitus without complications (principal); E78.2 Mixed hyperlipidemia
CPT/HCPCS: 36415; 80053; 80061; 83036

== ENCOUNTER → 2023-10-07 12:19 | Outpatient (CLI) | payer MEDICARE, SELFPAY ==
[2023-10-07 14:29] LABS: Hemoglobin A1C% w Est Avg Glu 6.1 % (4.0-6.0)
[2023-10-07 14:34] LABS: Alanine Aminotransferase 26 IU/L (<50); Albumin 4.3 g/dL (3.5-5.0); Albumin Globulin Ratio 1.5 (1.0-2.8); Alkaline Phosphatase 51 U/L (38-126); Aspartate Aminotransferase 26 IU/L (17-59); BUN Creatinine Ratio 32.2 (6-22); Bilirubin Total 0.5 mg/dL (0.2-1.3); Blood Urea Nitrogen 19 mg/dL (9-20); Calcium 9.7 mg/dL (8.4-10.2); Carbon Dioxide 30 mmol/L (22-32); Chloride 103 mmol/L (98-107); Cholesterol 199 mg/dL (140-199); Estimated Glomerular Filt Rate > 60 mL/min (>60); Globulin 2.9 g/dL (1.7-4.1); Glucose 127 mg/dL (80-110); HDL Cholesterol 69 mg/dL (40-60); HEMOLYSIS < 15 (0-50); LDL Cholesterol Calculated 115 mg/dL (<100); Sodium 141 mmol/L (137-145); Total Protein 7.2 g/dL (6.3-8.2); Triglycerides 77 mg/dL (35-150)
== END ==
PROVIDERS: PCP Internal Medicine; Referring Provider Internal Medicine; Visit Provider Internal Medicine
DX: E11.9 Type 2 diabetes mellitus without complications (principal); I10 Essential (primary) hypertension
CPT/HCPCS: 36415; 80053; 80061; 83036

== ENCOUNTER → 2024-04-30 12:04 | Outpatient (CLI) | payer MEDICARE, SELFPAY ==
[2024-04-30 12:32] LABS: Hemoglobin A1C% w Est Avg Glu 6.1 % (4.0-6.0)
[2024-04-30 12:46] LABS: Alanine Aminotransferase 21 IU/L (<50); Albumin 4.4 g/dL (3.5-5.0); Albumin Globulin Ratio 1.7 (1.0-2.8); Alkaline Phosphatase 57 U/L (38-126); Aspartate Aminotransferase 24 IU/L (17-59); Bilirubin Total 0.6 mg/dL (0.2-1.3); Blood Urea Nitrogen 16 mg/dL (9-20); Calcium 8.9 mg/dL (8.4-10.2); Carbon Dioxide 30 mmol/L (22-32); Chloride 104 mmol/L (98-107); Cholesterol 207 mg/dL (140-199); Estimated Glomerular Filt Rate > 60 mL/min (>60); Globulin 2.6 g/dL (1.7-4.1); Glucose 140 mg/dL (80-110); HDL Cholesterol 63 mg/dL (40-60); HEMOLYSIS 15 (0-50); LDL Cholesterol Calculated 118 mg/dL (<100); Potassium 3.8 mmol/L (3.4-5.1); Sodium 139 mmol/L (137-145); Triglycerides 128 mg/dL (35-150)
[2024-04-30 17:24] LABS: Creatinine Urine Random 31.18 mg/dL
[2024-04-30 17:29] LABS: Microalbumin Urine Random 2.9 mg/dL (0-1.6)
== END ==
PROVIDERS: PCP Internal Medicine; Referring Provider Internal Medicine; Visit Provider Internal Medicine
DX: I10 Essential (primary) hypertension (principal); E11.9 Type 2 diabetes mellitus without complications; E78.2 Mixed hyperlipidemia
CPT/HCPCS: 36415; 80053; 80061; 82043; 82570; 83036

== ENCOUNTER → 2024-07-12 16:17 | Outpatient (CLI) | payer MEDICARE, SELFPAY ==
[2024-07-12 18:56] LABS: Influenza A - CEPHEID Flu A NEGATIVE (NEGATIVE); Influenza B - CEPHEID Flu B NEGATIVE (NEGATIVE); Respiratory Syncytial Virus Negative (Negative)
[2024-07-12 19:11] LABS: COVID-19 CEPHEID 4-PLEX PCR Negative (Negative)
== END ==
PROVIDERS: PCP Internal Medicine; Visit Provider Physician Assistant
DX: J02.9 Acute pharyngitis, unspecified (principal); R05.1 Acute cough
CPT/HCPCS: 0241U; 87070

== ENCOUNTER → 2024-07-12 17:18 | Outpatient (CLI) | payer MEDICARE, SELFPAY ==
--- NOTE | 2024-07-12 17:19 | DI.RAD.S_ITS ---
PROCEDURE: XR CHEST 2V INDICATIONS: cough since April, brown sputum TECHNIQUE: 2 views of the chest were acquired. COMPARISON: [facility], , CHEST FOR PICC PLACEMENT, 08/05/2015, 11:09. FINDINGS: Surgical changes and devices: None. Lungs and pleura: Lungs are clear. No pleural effusions or pneumothorax. Possible prominent bilateral nipple shadow Mediastinum: Mediastinal contours are normal. Heart size is normal. Bones and chest wall: No suspicious bony abnormalities. Soft tissues appear unremarkable. IMPRESSION: 1. No acute cardiopulmonary disease. 2. Probable prominent bibasilar nipple shadows. When clinically feasible, recommend upright PA chest with nipple markers in position for confirmation. Dictated by: Abilio Washington [facility] Interpreted: Laura Suazo MD on 07/13/2024 at 19:17 Approved by: Laura Suazo M.D. on 07/14/2024 at 16:46
== END ==
PROVIDERS: PCP Internal Medicine; Referring Provider Physician Assistant; Visit Provider Physician Assistant
DX: J06.9 Acute upper respiratory infection, unspecified (principal); J02.9 Acute pharyngitis, unspecified; R05.1 Acute cough
CPT/HCPCS: 0241U; 71046; 87070

== ENCOUNTER → 2024-07-22 17:40 | Outpatient (CLI) | payer MEDICARE, SELFPAY ==
--- NOTE | 2024-07-22 17:41 | DI.RAD.S_ITS ---
PROCEDURE: XR CHEST 2V INDICATIONS: f/u abnormal xray TECHNIQUE: 2 views of the chest were acquired. COMPARISON: [facility], , XR CHEST 2V, 07/12/2024, 17:17. FINDINGS: Surgical changes and devices: None. Lungs and pleura: Lungs are clear. No pleural effusions or pneumothorax. Mediastinum: Mediastinal contours are normal. Heart size is normal. Bones and chest wall: No suspicious bony abnormalities. Soft tissues appear unremarkable. IMPRESSION: No acute cardiopulmonary pathology. Dictated by: Jason Pierce M.D. on 07/23/2024 at 9:49 Approved by: Jason Pierce M.D. on 07/23/2024 at 9:49
== END ==
PROVIDERS: PCP Internal Medicine; Referring Provider Physician Assistant; Visit Provider Physician Assistant
DX: R93.89 Abnormal findings on diagnostic imaging of other specified body structures (principal)
CPT/HCPCS: 71046

== ENCOUNTER → 2024-08-18 09:12 | Outpatient (CLI) | payer MEDICARE, SELFPAY ==
[2024-08-18 10:34] LABS: Hemoglobin A1C% w Est Avg Glu 8.3 % (4.0-6.0)
[2024-08-18 10:55] LABS: BUN Creatinine Ratio 30.6 (6-22); Blood Urea Nitrogen 15 mg/dL (9-20); Calcium 9.1 mg/dL (8.4-10.2); Carbon Dioxide 24 mmol/L (22-32); Chloride 104 mmol/L (98-107); Estimated Glomerular Filt Rate > 60 mL/min (>60); Glucose 234 mg/dL (80-110); HEMOLYSIS < 15 (0-50); Potassium 3.7 mmol/L (3.4-5.1); Sodium 136 mmol/L (137-145)
== END ==
PROVIDERS: PCP Internal Medicine; Referring Provider Internal Medicine; Visit Provider Internal Medicine
DX: E11.9 Type 2 diabetes mellitus without complications (principal); I10 Essential (primary) hypertension
CPT/HCPCS: 36415; 80048; 83036

== ENCOUNTER → 2024-11-08 10:06 | Outpatient (CLI) | payer MEDICARE, SELFPAY ==
[2024-11-08 11:00] LABS: Hemoglobin A1C% w Est Avg Glu 6.2 % (4.0-6.0)
[2024-11-08 11:43] LABS: Alanine Aminotransferase 23 IU/L (<50); Albumin 4.2 g/dL (3.5-5.0); Albumin Globulin Ratio 1.4 (1.0-2.8); Alkaline Phosphatase 60 U/L (38-126); Aspartate Aminotransferase 25 IU/L (17-59); BUN Creatinine Ratio 28.4 (6-22); Bilirubin Total 0.5 mg/dL (0.2-1.3); Blood Urea Nitrogen 19 mg/dL (9-20); Calcium 9.6 mg/dL (8.4-10.2); Carbon Dioxide 27 mmol/L (22-32); Chloride 106 mmol/L (98-107); Estimated Glomerular Filt Rate > 60 mL/min (>60); Globulin 2.9 g/dL (1.7-4.1); Glucose 123 mg/dL (80-110); HEMOLYSIS < 15 (0-50); Potassium 3.9 mmol/L (3.4-5.1); Sodium 138 mmol/L (137-145); Total Protein 7.1 g/dL (6.3-8.2)
== END ==
PROVIDERS: PCP Internal Medicine; Referring Provider Internal Medicine; Visit Provider Internal Medicine
DX: E11.9 Type 2 diabetes mellitus without complications (principal); I10 Essential (primary) hypertension
CPT/HCPCS: 36415; 80053; 83036

== ENCOUNTER → 2025-02-05 10:32 | Outpatient (CLI) | payer MEDICARE, SELFPAY ==
[2025-02-05 11:55] LABS: Hemoglobin A1C% w Est Avg Glu 5.7 % (4.0-6.0)
[2025-02-05 12:02] LABS: Alanine Aminotransferase 34 IU/L (<50); Albumin 4.5 g/dL (3.5-5.0); Albumin Globulin Ratio 1.7 (1.0-2.8); Alkaline Phosphatase 62 U/L (38-126); Aspartate Aminotransferase 28 IU/L (17-59); BUN Creatinine Ratio 25.8 (6-22); Bilirubin Total 0.4 mg/dL (0.2-1.3); Blood Urea Nitrogen 16 mg/dL (9-20); Calcium 9.3 mg/dL (8.4-10.2); Carbon Dioxide 27 mmol/L (22-32); Chloride 103 mmol/L (98-107); Cholesterol 221 mg/dL (140-199); Estimated Glomerular Filt Rate > 60 mL/min (>60); Globulin 2.6 g/dL (1.7-4.1); Glucose 150 mg/dL (80-110); HDL Cholesterol 62 mg/dL (40-60); HEMOLYSIS < 15 (0-50); LDL Cholesterol Calculated 129 mg/dL (<100); Potassium 4.4 mmol/L (3.4-5.1); Sodium 138 mmol/L (137-145); Total Protein 7.1 g/dL (6.3-8.2); Triglycerides 152 mg/dL (35-150)
== END ==
PROVIDERS: PCP Internal Medicine; Referring Provider Internal Medicine; Visit Provider Internal Medicine
DX: E11.9 Type 2 diabetes mellitus without complications (principal); I10 Essential (primary) hypertension; E78.2 Mixed hyperlipidemia
CPT/HCPCS: 36415; 80053; 80061; 83036

== ENCOUNTER → 2025-08-06 11:47 | Outpatient (CLI) | payer MEDICARE, SELFPAY ==
[2025-08-06 13:09] LABS: Hemoglobin A1C% w Est Avg Glu 6.2 % (4.0-6.0)
[2025-08-06 13:24] LABS: Alanine Aminotransferase 19 IU/L (<50); Albumin 4.3 g/dL (3.5-5.0); Albumin Globulin Ratio 1.6 (1.0-2.8); Alkaline Phosphatase 52 U/L (38-126); Blood Urea Nitrogen 13 mg/dL (9-20); Calcium 9.1 mg/dL (8.4-10.2); Carbon Dioxide 24 mmol/L (22-32); Chloride 104 mmol/L (98-107); Cholesterol 200 mg/dL (140-199); Estimated Glomerular Filt Rate > 60 mL/min (>60); Globulin 2.7 g/dL (1.7-4.1); Glucose 136 mg/dL (70-99); HDL Cholesterol 70 mg/dL (40-60); HEMOLYSIS < 15 (0-50); Potassium 4.3 mmol/L (3.4-5.1); Sodium 139 mmol/L (137-145); Total Protein 7.0 g/dL (6.3-8.2); Triglycerides 107 mg/dL (35-150)
== END ==
PROVIDERS: PCP Internal Medicine; Referring Provider Internal Medicine; Visit Provider Internal Medicine
DX: E11.9 Type 2 diabetes mellitus without complications (principal); I10 Essential (primary) hypertension; E78.2 Mixed hyperlipidemia; G25.0 Essential tremor
CPT/HCPCS: 36415; 80053; 80061; 83036